=== PATIENT | female | born 1985 | race Caucasian/White ===

== ENCOUNTER 2018-08-16 08:07 | Observation (INO) ==
--- NOTE | 2018-08-16 08:17 | Emergency Department Note ---
ED Disposition Clinical Impression: Enterocolitis Disposition: Still a Patient Condition on Discharge: Fair Referrals: Alfredo Cuevas MD [Primary Care Provider] - - Critical Care Critical Care Time: No Attestation: On , the high probability of a clinically significant, sudden or life threatening deterioration of the following system(s) required my full and direct attention, intervention and personal management. The time I documented below is in addition to time spent performing reported procedures but includes the following listed in this critical care notation. Medical Decision Making - Artemio Inquiry Pt receiving controlled substance: Yes (Requests pain medication) Artemio was queried for this patient: No Reason not queried -: Emergent pt cond-no time Risks and benefits of using a controlled substance: were not discussed with pt by me Vital Signs: 08/16/18 08:12 08/16/18 08:44 08/16/18 09:27 Temperature 98.4 F Temperature Source Oral Pulse Rate [Left Radial] 80 81 74 Respiratory Rate 18 Blood Pressure [Right Arm] 118/90 121/87 117/83 Blood Pressure Mean [Right Arm] 99 98 94 Blood Pressure Source [Right Arm] Automatic Cuff Automatic Cuff Blood Pressure Position [Right Arm] Sitting Sitting 02 Sat by Pulse Oximetry 98 99 99 Oxygen Delivery Method Room Air Room Air 08/16/18 10:39 Temperature Temperature Source Pulse Rate [Left Radial] 72 Respiratory Rate 16 Blood Pressure [Right Arm] 137/85 Blood Pressure Mean [Right Arm] 102 Blood Pressure Source [Right Arm] Automatic Cuff Blood Pressure Position [Right Arm] Sitting 02 Sat by Pulse Oximetry 97 Oxygen Delivery Method Room Air - Lab Data Lab Results 08/16/18 08:18: WBC 14.0 H, RBC 5.64 H, Hgb 15.5, Hct 46.4, MCV 82.2, MCH 27.5, MCHC 33.5, RDW 13.1, Plt Count 489 H, MPV 6.9 L, Neut % (Auto) 74.5, Lymph % (Auto) 18.9, [place] % (Auto) 3.6, Eos % (Auto) 2.8, Baso % (Auto) 0.2, Neut # (Auto) 10.5 H, Lymph # (Auto) 2.7, [place] # (Auto) 0.5, Eos # (Auto) 0.4, Baso # (Auto) 0.0 08/16/18 08:18: Sodium 138, Potassium 3.8, Chloride 102, Carbon Dioxide 27, Anion Gap 12.8, BUN 11, Creatinine 1.01, Estimated Creat Clear 76, Estimated GFR 64, Est GFR ( Amer) 77, Glucose 134 H, Calcium 9.5, Total Bilirubin 0.4, AST 6 L, ALT 21, Alkaline Phosphatase 104, Total Protein 8.2, Albumin 4.0, Globulin 4.2 H, Albumin/Globulin Ratio 1.0 L, Lipase 178 08/16/18 08:18: Serum HCG, Qual Negative 08/16/18 08:30: Urine Color Yellow, Urine Appearance Sl cloudy, Urine pH 6.0, Ur Specific [place] >= 1.030, Urine Protein Trace, Urine Glucose (UA) Negative, Urine Ketones Trace, Urine Blood Negative, Urine Nitrate Negative, Urine Bilirubin Negative, Urine Urobilinogen 0.2, Ur Leukocyte Esterase Negative, Urine RBC None, Urine WBC Occasional, Ur Squamous Epith Cells 10-20, Urine Bacteria Trace Result diagrams: 08/16/18 08:18 08/16/18 08:18 Orders (Tests/Meds): ED MEDICATIONS Discontinued Medications Generic Name Dose Route Start Last Admin Trade Name Freq PRN Reason Stop Dose Admin Famotidine 20 mg 08/16/18 10:29 Pepcid 20mg/2ml Vial IV 08/16/18 10:30 ONCE ONE Iopamidol 75 ml 08/16/18 09:57 08/16/18 09:58 [id number]; 75ml Vial IV 08/16/18 09:58 75 ml ONCE ONE Administration Protocol Morphine Sulfate 4 mg 08/16/18 08:55 08/16/18 09:24 Morphine 4mg/Ml Syringe IV 08/16/18 08:56 4 mg ONCE ONE Administration Morphine Sulfate 4 mg 08/16/18 10:29 08/16/18 10:38 Morphine 4mg/Ml Syringe IV 08/16/18 10:30 4 mg ONCE ONE Administration Ondansetron HCl 4 mg 08/16/18 08:35 08/16/18 08:41 Zofran 4mg/2ml Vial IV 08/16/18 08:36 Not Given ONCE ONE Ondansetron HCl 4 mg 08/16/18 09:24 08/16/18 09:24 Zofran 4mg/2ml Vial IV 08/16/18 09:25 4 mg ONCE ONE Administration Promethazine HCl 12.5 mg 08/16/18 10:29 08/16/18 10:38 Phenergan 25mg/Ml 1ml Vial IV 08/16/18 10:30 12.5 mg ONCE ONE Administration Sodium Chloride 1,000 ml 08/16/18 08:55 08/16/18 09:24 Sod Chlor 0.9% 1000ml Bag IV 08/16/18 08:56 1,000 ml BOLUS ONE Administration Sodium Chloride 10 ml 08/16/18 09:57 08/16/18 09:58 Rad-Saline Flush 10ml Syringe IV 08/16/18 09:58 10 ml ONCE ONE Administration Sodium Chloride 25 ml 08/16/18 10:29 08/16/18 10:39 Sod Chlor 0.9% 25ml Bag IV 08/16/18 10:30 25 ml ONCE ONE Administration ORDERS Category Date Time Status Diarrhea Panel, PCR Stat Lab 08/16/18 08:55 Ordered Urinalysis and Microscopic Stat Lab 08/16/18 08:30 Ordered - CT Data CT Scan: Abdomen, Pelvis Time Received: 10:[address] Reviewed: Yes: I have viewed the radiologist's interpretation Findings Narrative: IMPRESSION: 1. Small amount fluid is present in the pelvis with a thin rim like rounded area of enhancement in the right adnexa which could represent a ruptured ovarian cyst. 2. Possible enterocolitis. Dictated By: Harjit Mane MD Signed By: <Electronically signed by Harjit Mane MD in [place]> 08/16/18 1017 - US Data US Images: Gallbladder Findings Narrative: Contracted gallbladder with wall thickening. No stones seen. Common duct normal. Thinning of both renal cortices. - Reevaluation(s) Time: 10:51 Reevaluation #1: Patient has not improved symptomatically. Discussed results. Most likely enterocolitis. Medical Decision Narrative: Patient was seen in the emergency room by Dr. Cuevas at the end of his shift. He states that if the patient does not improve, admit to his service. General Adult HPI - General Chief complaint: Abdominal Pain Stated complaint: gallbladder pain Time Seen by Provider: 08/16/18 08:17 Mode of Arrival: Ambulatory Limitations: No Limitations Description of Symptoms (Recalled from ER Triage Doc. by RN): to ed per pvt car with c/o ruq abd pain radiating into back +N/V starting tuesday. - History of Present Illness HPI narrative: Complains of abdominal pain since Tuesday. Pain is in the right upper quadrant and radiates to her back. However, her whole abdomen is sore, she believes from vomiting and dry heaves. She has had diarrhea, approximately 10 episodes per day. No blood noticed. She has felt chilled, but no documented fever. Has had 3 previous episodes of this type of pain since , but has not been seen by anybody until today. She believes it may be her gallbladder. Last food was yesterday evening. This morning she had a sip of Jose-Aid. - Related Data Home Medications Medication Instructions Recorded Confirmed diazepam 2 mg tablet 2 mg PO BID tab 05/30/18 08/16/18 Dextroamphetamine/Amphetamine 30 mg PO BID 08/16/18 08/16/18 [Dextroamp-Amphetamin 30 mg Tab] Propranolol HCl [Propranolol HCl 60 mg PO DAILY 08/16/18 08/16/18 ER] Sertraline HCl [Zoloft] 100 mg PO DAILY 08/16/18 08/16/18 Previous Rx's Medication Instructions Recorded sumatriptan 25 mg tablet 25 mg PO DAILY PRN #12 tab 05/18/18 Allergies Allergy/AdvReac Type Severity Reaction Status Date / Time No Known Allergies Allergy Unverified 08/16/18 08:57 [facility] History - Hepatitis A Screen Drug use history?: No High risk sexual behaviors?: No History of sexually transmitted infection?: No Currently employed?: No Childcare worker?: No Do you have indoor plumbing?: Yes Do you have electricity?: Yes Attestation statement:: This patient has been screened for Hepatitis A risk factors. I have reviewed the patient's past medical history: Yes Medical History: Reports:: Anxiety, Depression, Kidney Stones, Migraine Other Medical History: Reports: Other Comment: ADHD Laterality Cases: Bilateral: Breast Biopsy Other Surgeries: Yes: , Other Amputation: No Fractures: No - Social History Smoking Status: Never smoker Alcohol Intake: never Substance Use Type: denies use Occupational Status: employed Housing: house Household Members: family - Psychiatric History Expresses thoughts of harming self/others: None Suicide Plan Description: No Plan Pschychiatric History:: Reports:: Anxiety, Depression Family Hx:: Cancer, Hypertension, Diabetes Comment: myasthenia gravis ROS Obtained: Yes All systems reviewed & no additional complaints - Constitutional Constitutional: Reports chills, Denies fever(s) - Gastrointestinal Gastrointestingal: Reports: abdominal pain, diarrhea, nausea, vomiting Physical Exam - General General appearance: alert, in no apparent distress - Head Head exam: atraumatic, normocephalic - Eye Eye exam: Present: PERRL, EOMI - ENT ENT exam: Present: mucous membranes moist - Neck Neck exam: Present: normal inspection, trachea midline - Chest Chest inspection: Present: normal inspection, symmetric chest wall rise - Respiratory Respiratory exam: Present: normal lung sounds bilaterally. Absent: respiratory distress - Cardiovascular Cardiovascular exam: Present: regular rate, normal rhythm, normal heart sounds - Abdominal Exam Abdominal exam: Present: soft, tenderness. Absent: distention, guarding, rebound Abdominal tenderness: Present: diffuse (Most tender right upper quadrant) - Extremities Exam Extremities exam: Present: normal inspection - Neurological Exam Neurological exam: Present: alert, oriented X3 - Psychiatric Psychiatric exam: Present: normal affect, normal mood - Skin Skin exam: Present: warm, dry
[2018-08-16 08:28] LABS: Basophils % 0.2 % (0.1-2.0); Eosinophils # 0.4 K/mm3 (0.0-0.4); Eosinophils % 2.8 % (0.1-12.0); Hematocrit 46.4 % (37.0-47.0); Hemoglobin 15.5 g/dL (12.2-16.2); Lymphocytes # 2.7 K/mm3 (0.7-4.5); Lymphocytes % 18.9 % (10-50); Mean Corpuscular HGB Conc 33.5 g/dL (31.8-35.4); Mean Corpuscular Hemoglobin 27.5 pg (27.0-31.2); Mean Corpuscular Volume 82.2 fl (81-99); Mean Platelet Volume 6.9 fl (7.4-10.4); Monocytes # 0.5 K/mm3 (0.1-1.0); Monocytes % 3.6 % (1.7-9.3); Neutrophils # 10.5 K/mm3 (1.8-7.8); Neutrophils % 74.5 % (37.0-80.0); Platelet Count 489 K/mm3 (142-424); Red Blood Count 5.64 M/mm3 (4.20-5.40); Red Cell Distribution Width 13.1 % (11.5-17.5)
[2018-08-16 08:38] LABS: Anion Gap 12.8 mEq/L (5-15); Bilirubin,Total 0.4 mg/dL (0.2-1.0); Calcium 9.5 mg/dL (8.5-10.1); Globulin 4.2 gm/dl (1.3-3.2); Potassium 3.8 mmoL/L (3.5-5.1); Total Protein,Serum 8.2 gm/dL (6.4-8.2)
[2018-08-16 08:42] LABS: Microscopic, Urine URINE MICROSCOPIC (MICROSCOPIC)
[2018-08-16 08:49] LABS: Appearance,Urine SL CLOUDY (Clear); Blood, Urine Negative (Negative); Color,Urine YELLOW (Yellow); Glucose,Urine (UA) Negative (Negative); Ketones,Urine TRACE (Negative); Leukocyte Esterase,Urine Negative (Negative); Protein,Urine TRACE (Negative); Specific Gravity, Urine >= 1.030 (1.005-1.030); Urobilinogen,Urine 0.2 EU/dl (0.2)
[2018-08-16 08:59] LABS: Bacteria,Urine Trace /lpf; Bilirubin,Urine Negative (Negative); WBC,Urine Occasional #/hpf (0-3)
--- NOTE | 2018-08-16 13:19 | Pharmacy Consult Notes ---
[facility] Pharmacy VTE Monitoring - Patient Demographics Admission date: 08/16/18 Report Date: 08/16/18 Time: 13:19 Allergies/Adverse Reactions: Patient Allergies No Known Allergies Allergy (Verified 08/16/18 12:37) Height: 1.52 m Weight: 62.284 kg Patient Problems: Current Active Problems (Last Updated 11/07/17 @ 11:03 by CAMILLE Thompson) Enterocolitis (Acute) - VTE Risk Labs: VTE Related Lab Results Hgb 15.5 g/dL (12.2-16.2) 08/16/18 08:18 Hct 46.4 % (37.0-47.0) 08/16/18 08:18 Plt Count 489 K/mm3 (142-424) H 08/16/18 08:18 BUN 11 mg/dL (7-18) 08/16/18 08:18 Creatinine 1.01 mg/dL (0.55-1.02) 08/16/18 08:18 Estimated Creat Clear 76 mL/min (50-200) 08/16/18 08:18 Was VTE Risk Assessment Performed: Yes VTE Score: 0 VTE Risk Level: Very Low Risk Clinical Trial Participant: No - Prophylaxis VTE Prophylaxis Ordered?: Yes Types of VTE Prophylaxis: TEDS Knee High
--- NOTE | 2018-08-16 13:43 | History & Physical Report ---
*Admission Date: 08/16/18 *Chief complaint: vomiting *History of present illness: this wf who has progressive abd pain with vomiting and diarrhea - Complains of abdominal pain since Tuesday. Pain is in the right upper quadrant and radiates to her back. However, her whole abdomen is sore, she believes from vomiting and dry heaves. She has had diarrhea, approximately 10 episodes per day. No blood noticed. She has felt chilled, but no documented fever. Has had 3 previous episodes of this type of pain since , but has not been seen by anybody until today. She believes it may be her gallbladder. Last food was yesterday evening. This morning she had a sip of Jose-Aid [facility] History Medical History: Reports:: Anxiety, Depression, Kidney Stones, Migraine Denies:: Cancer, Diabetes Mellitus Type 1, Diabetes Mellitus Type 2, MRSA Other Medical History: Reports: Other Laterality Cases: Bilateral: Breast Biopsy Other Surgeries: Yes: , Other Amputation: No Fractures: No - *Social History Educational Level: Attended College Smoking Status: Never smoker Alcohol Intake: never Substance Use Type: denies use Occupational Status: employed Housing: house Household Members: family - Psychiatric History Expresses thoughts of harming self/others: None Suicide Plan Description: No Plan Pschychiatric History:: Reports:: Anxiety, Depression *Family Hx:: Cancer, Hypertension, Diabetes Meds Home Medications Medication Instructions Recorded Confirmed Type diazepam 2 mg tablet 2 mg PO BID tab 05/30/18 08/16/18 History Dextroamphetamine/Amphetamine 30 mg PO BID 08/16/18 08/16/18 History [Dextroamp-Amphetamin 30 mg Tab] Propranolol HCl [Propranolol HCl 60 mg PO HS 08/16/18 08/16/18 History ER] Sertraline HCl [Zoloft] 100 mg PO DAILY 08/16/18 08/16/18 History Allergies Allergy/AdvReac Type Severity Reaction Status Date / Time No Known Allergies Allergy Verified 08/16/18 12:37 Exam Vital signs and Labs for Last 24 Hours: Temp Pulse Resp BP Pulse Ox 97.8 F 54 L 16 119/80 100 08/16/18 12:31 08/16/18 12:31 08/16/18 12:31 08/16/18 12:31 08/16/18 12:31 Laboratory Results - last 24 hr 08/16/18 08:18: WBC 14.0 H, RBC 5.64 H, Hgb 15.5, Hct 46.4, MCV 82.2, MCH 27.5, MCHC 33.5, RDW 13.1, Plt Count 489 H, MPV 6.9 L, Neut % (Auto) 74.5, Lymph % (Auto) 18.9, [place] % (Auto) 3.6, Eos % (Auto) 2.8, Baso % (Auto) 0.2, Neut # (Auto) 10.5 H, Lymph # (Auto) 2.7, [place] # (Auto) 0.5, Eos # (Auto) 0.4, Baso # (Auto) 0.0 08/16/18 08:18: Sodium 138, Potassium 3.8, Chloride 102, Carbon Dioxide 27, Anion Gap 12.8, BUN 11, Creatinine 1.01, Estimated Creat Clear 76, Estimated GFR 64, Est GFR ( Amer) 77, Glucose 134 H, Calcium 9.5, Total Bilirubin 0.4, AST 6 L, ALT 21, Alkaline Phosphatase 104, Total Protein 8.2, Albumin 4.0, Globulin 4.2 H, Albumin/Globulin Ratio 1.0 L, Lipase 178 08/16/18 08:18: Serum HCG, Qual Negative 08/16/18 08:30: Urine Color Yellow, Urine Appearance Sl cloudy, Urine pH 6.0, Ur Specific [place] >= 1.030, Urine Protein Trace, Urine Glucose (UA) Negative, Urine Ketones Trace, Urine Blood Negative, Urine Nitrate Negative, Urine Bilirubin Negative, Urine Urobilinogen 0.2, Ur Leukocyte Esterase Negative, Urine RBC None, Urine WBC Occasional, Ur Squamous Epith Cells 10-20, Urine Bacteria Trace I & O for Last 24 hours: Intake & Output 08/14/18 08/15/18 08/16/18 08/17/18 11:59 11:59 11:59 11:59 Weight 131 lb 137 lb 5 oz
--- NOTE | 2018-08-17 09:57 | Progress Note ---
Internal Medicine - PN: Subj *Date: 08/17/18 *Time: 09:53 Exam Vital signs and Labs for Last 24 Hours: Temp Pulse Resp BP Pulse Ox 97.8 F 89 15 103/61 L 99 08/17/18 08:00 08/17/18 08:00 08/17/18 08:00 08/17/18 08:00 08/17/18 08:00 I & O for Last 24 hours: Intake & Output 08/14/18 08/15/18 08/16/18 08/17/18 11:59 11:59 11:59 11:59 Intake Total 1221 / 1221 Output Total 750 / 750 Balance 471 / 471 Weight 131 lb 137 lb 5 oz - *Routine HEENT Exam Head: Present: normocephalic Eye: Present: PERRL ENT: Present: mucous membranes moist - *Routine Neck Exam Present: supple. Absent: lymphadenopathy - *Routine Respiratory Exam Present: CTA bilaterally - *Routine Cardiovascular Exam Present: RRR - *Routine Abdominal Exam Present: normoactive bowel sounds, tenderness Comments: Positive [place] sign - *Routine Extremities Exam Absent: cyanosis, clubbing, edema - *Routine Skin Exam Present: warm. Absent: rash - *Routine Neurological Exam Present: alert, oriented X3 Assessment and Plan - Assessment and plan all Dx Assessment and Plan for all problems:: Rounded with Dr. Cuevas all orders per [facility] consult
--- NOTE | 2018-08-17 12:04 | Consult Report ---
*Admission Date: 08/16/18 *History of present illness: This is a 32-year-old female seen in consultation from Dr. Cuevas for evaluation regarding possible gallbladder disease. She presented to the emergency department with pain in the epigastric region and somewhat in the right upper quadrant. She also has some pain in the left lower quadrant. She has had fairly significant nausea and vomiting over the past few days. She has also had fairly severe diarrhea over the past few days. She has not had episodes of diarrhea since admission to the hospital. No melena. No bright red blood per rectum. No jaundice. She has had a few other episodes that were similar over the past month. [facility] History Medical History: Reports:: Anxiety, Depression, Kidney Stones, Migraine Denies:: Cancer, Diabetes Mellitus Type 1, Diabetes Mellitus Type 2, MRSA Other Medical History: Reports: Other Laterality Cases: Bilateral: Breast Biopsy Other Surgeries: Yes: , Other Amputation: No Fractures: No - *Social History Educational Level: Attended College Smoking Status: Never smoker Alcohol Intake: never Substance Use Type: denies use Occupational Status: employed Housing: house Household Members: family - Psychiatric History Expresses thoughts of harming self/others: None Suicide Plan Description: No Plan Pschychiatric History:: Reports:: Anxiety, Depression *Family Hx:: Cancer, Hypertension, Diabetes Meds Home Medications Medication Instructions Recorded Confirmed Type sumatriptan 25 mg tablet 25 mg PO DAILY PRN #12 tab 05/18/18 08/16/18 Rx diazepam 2 mg tablet 2 mg PO BID tab 05/30/18 08/16/18 History Dextroamphetamine/Amphetamine 30 mg PO BID 08/16/18 08/16/18 History [Dextroamp-Amphetamin 30 mg Tab] Propranolol HCl [Propranolol HCl 60 mg PO HS 08/16/18 08/16/18 History ER] Sertraline HCl [Zoloft] 100 mg PO DAILY 08/16/18 08/16/18 History Allergies Allergy/AdvReac Type Severity Reaction Status Date / Time No Known Allergies Allergy Verified 08/16/18 12:37 Exam Vital signs and Labs for Last 24 Hours: Temp Pulse Resp BP Pulse Ox 97.8 F 89 15 103/61 L 99 08/17/18 08:00 08/17/18 08:00 08/17/18 08:00 08/17/18 08:00 08/17/18 08:00 Laboratory Results - last 24 hr 08/17/18 10:15: ESR 10 08/17/18 10:15: C-Reactive Protein 0.3 I & O for Last 24 hours: Intake & Output 08/15/18 08/16/18 08/17/18 08/18/18 11:59 11:59 11:59 11:59 Intake Total 1701 / 1701 Output Total 1200 / 1200 Balance 501 / 501 Weight 131 lb 137 lb 5 oz Radiology Reports for the Last 24 Hours: US: FINDINGS: PANCREAS: Unremarkable. No obvious mass or abnormal fluid collection. No ductal dilatation LIVER: No focal liver lesions demonstrated. Homogeneous echogenicity. No intrahepatic biliary ductal dilatation evident RIGHT KIDNEY: There is thinning of the right renal cortex. The left kidney was also imaged and also showed a thinning of the cortex. No hydronephrosis GALLBLADDER: No gallstones, gallbladder wall thickening, pericholecystic fluid, or biliary dilatation. IMPRESSION: Negative gallbladder ultrasound. Bilateral renal cortical thinning CT Abd: FINDINGS: The lung bases are clear. The liver, spleen, adrenal glands, pancreas, and kidneys have an unremarkable appearance. No renal or ureteral calculi. No hydronephrosis. There are a few small lymph nodes in the retroperitoneum. No evidence of appendicitis or diverticulitis. There is a small amount fluid in the pelvis. There is a thin-walled oval area of enhancement in the right adnexa measuring 18 mm and could represent a ruptured ovarian cyst having them somewhat irregular contour. No intestinal obstruction or free air. There are fluid-filled loops of small bowel which do not appear distended. There may be some mild thickening of the colon as well. The colon is also nondistended. No acute bony anomalies. IMPRESSION: 1. Small amount fluid is present in the pelvis with a thin rim like rounded area of enhancement in the right adnexa which could represent a ruptured ovarian cyst. 2. Possible enterocolitis. - Constitutional no acute distress - *Routine Respiratory Exam Absent: respiratory distress - *Routine Cardiovascular Exam Present: RRR - *Routine Abdominal Exam Present: soft, tenderness. Absent: distended, rebound Comments: Mostly in the epigastric region. Some tenderness to palpation in bilateral upper quadrants and in left lower quadrant. Results - Labs 08/16/18 08:18 08/16/18 08:18 Laboratory Results - last 24 hr 08/17/18 10:15: ESR 10 08/17/18 10:15: C-Reactive Protein 0.3 - Imaging CT scan - abdomen: report reviewed, image reviewed CT scan - pelvis: report reviewed, image reviewed US - abdomen: report reviewed, image reviewed Assessment and Plan (1) Enterocolitis Current visit: Yes Status: Acute Category: Medical Code(s): K52.9 - Noninfective gastroenteritis and colitis, unspecified The patient's symptoms are somewhat complex, but mostly consistent with enterocolitis. Although she does have pain in the right upper quadrant/epigas tric region with some radiation to the back, she does also have pain in the left upper quadrant and in the left lower quadrant. In addition, she has had fairly significant diarrhea and this is not entirely consistent with biliary disease (certainly more consistent with enterocolitis). Although biliary disease has not been (and cannot be) ruled out with 100% certainty, her CT scan does show changes consistent with enterocolitis and her ultrasound shows no gallbladder wall thickening or other changes consistent with biliary disease. A HIDA scan has been ordered by her primary service...results pending. Unfortunately, she has been hospitalized (decreased mobility) and has required narcotics for pain control. Therefore, her ejection fraction on HIDA will likely be exceptionally low. The HIDA scan may; however, be effective in helping rule out acute cholecystitis (presence or lack of gallbladder uptake). The ejection fraction itself will, unfortunately, be of little to no value. Levaquin/Flagyl ordered F/U HIDA F/U diarrhea panel
--- NOTE | 2018-08-18 06:48 | Progress Note ---
Subjective Patient reports: no new complaints, still having pain, nausea Exam Vital signs and Labs for Last 24 Hours: Temp Pulse Resp BP Pulse Ox 98.3 F 78 16 98/52 L 98 08/18/18 04:00 08/18/18 04:00 08/18/18 04:00 08/18/18 04:00 08/18/18 04:00 Laboratory Results - last 24 hr 08/17/18 10:15: ESR 10 08/17/18 10:15: C-Reactive Protein 0.3 I & O for Last 24 hours: Intake & Output 08/15/18 08/16/18 08/17/18 08/18/18 11:59 11:59 11:59 11:59 Intake Total 1701 / 1701 2669 / 2669 Output Total 1200 / 1200 1150 / 1150 Balance 501 / 501 1519 / 1519 Weight 131 lb 137 lb 5 oz - Constitutional no acute distress - *Routine Respiratory Exam Absent: respiratory distress - *Routine Cardiovascular Exam Present: RRR - *Routine Abdominal Exam Present: soft, tenderness Progress Note: A&P (1) Enterocolitis Status: Acute Assessment and plan: Continue medical management. Follow-up pending hepatobiliary scan for evaluation of possible "lack of uptake". Cholecystectomy if hepatobiliary scan reveals lack of uptake. Further evaluation regarding enterocolitis and/or cholecystitis will be ongoing. Continue antibiotics for now. Current Visit: Yes
--- NOTE | 2018-08-18 14:12 | Discharge Summary ---
General - General Admission date:: 08/16/18 Discharge date: 08/18/18 HPI HPI: this wf who has progressive abd pain with vomiting and diarrhea - Complains of abdominal pain since Tuesday. Pain is in the right upper quadrant and radiates to her back. However, her whole abdomen is sore, she believes from vomiting and dry heaves. She has had diarrhea, approximately 10 episodes per day. No blood noticed. She has felt chilled, but no documented fever. Has had 3 previous episodes of this type of pain since , but has not been seen by anybody until today. She believes it may be her gallbladder. Last food was yesterday evening. This morning she had a sip of [employer]-Aid Hospital Course Hospital Course: Hidda Scan:IMPRESSION: Unremarkable hepatobiliary scan and gallbladder ejection fraction. No evidence of common or cystic duct obstruction with normal gallbladder ejection fraction us IMPRESSION: 1. Small amount fluid is present in the pelvis with a thin rim like rounded area of enhancement in the right adnexa which could represent a ruptured ovarian cyst. 2. Possible enterocolitis. Patient states she was able to eat peanut butter crackers last night and tolerated it well. Will discharge home follow-up in the office. Patient will need to follow-up with Dr. Douglas as an outpatient. Objective Vital signs: Temp Pulse Resp BP Pulse Ox 98.3 F 78 16 98/52 L 98 08/18/18 04:00 08/18/18 04:00 08/18/18 04:00 08/18/18 04:00 08/18/18 04:00 no acute distress - *Routine HEENT Exam Head: Present: normocephalic Eye: Present: PERRL ENT: Present: mucous membranes moist - *Routine Neck Exam Present: supple - *Routine Respiratory Exam Present: CTA bilaterally - *Routine Cardiovascular Exam Present: RRR - *Routine Abdominal Exam Present: soft, normoactive bowel sounds, tenderness - *Routine Extremities Exam Present: full ROM - *Routine Skin Exam Present: intact - *Routine Neurological Exam Present: alert, oriented X3 - Routine Psychiatric Exam Present: normal affect, normal thought process Results - Additional Comments Rounded with Dr. Cuevas all orders per Mason DS: Diagnosis - Discharge Diagnosis (1) Enterocolitis Status: Acute Discharge Plan - Patient Discharge Instructions ACTIVITY: Continue current activity DIET: continue same diet Patient Instructions: Acute Abdominal Pain - Follow up Plan Follow up with: Alfredo Cuevas MD [Primary Care Provider] - Conrad Farias MD [Staff Physician] - 08/23/18 Disposition: Home, Self-Fpc Medications: Home Medications Medication Instructions Recorded Confirmed Type sumatriptan 25 mg tablet 25 mg PO DAILY PRN #12 tab 05/18/18 08/16/18 Rx diazepam 2 mg tablet 2 mg PO BID tab 05/30/18 08/16/18 History Dextroamphetamine/Amphetamine 30 mg PO BID 08/16/18 08/16/18 History [Dextroamp-Amphetamin 30 mg Tab] Propranolol HCl [Propranolol HCl 60 mg PO HS 08/16/18 08/16/18 History ER] Sertraline HCl [Zoloft] 100 mg PO DAILY 08/16/18 08/16/18 History Promethazine HCl [Phenergan 12.5mg 12.5 mg PO Q8 PRN 3 Days #14 tablet 08/18/18 Rx tablet] Prescriptions/Medication Reconciliation: New Promethazine HCl [Phenergan 12.5mg tablet] 12.5 mg PO Q8 PRN 3 Days #14 tablet PRN Reason: Nausea Continue sumatriptan 25 mg tablet 25 mg PO DAILY PRN #12 tab PRN Reason: migraine headache diazepam 2 mg tablet 2 mg PO BID tab Propranolol HCl [Propranolol HCl ER] 60 mg PO HS Dextroamphetamine/Amphetamine [Dextroamp-Amphetamin 30 mg Tab] 30 mg PO BID Sertraline HCl [Zoloft] 100 mg PO DAILY
== END 2018-08-18 16:49 | disposition home or self-care (01) ==
LOC: 2ND 08:07 → ER 08:07 → 2ND 12:19
PROVIDERS: ADMIT Emergency Medicine; ATTEND Emergency Medicine
CPT/HCPCS: 74177; 76705; 78226; 80053; 81001; 83690; 84703; 85025; 85651; 86140; 96365; 96375; 96376; 99284; A9537; G0378; J1956; J2405; Q9967

== ENCOUNTER → 2018-09-11 18:15 | Outpatient (CLI) | payer OTHER, SELFPAY ==
[2018-09-15 17:05] LABS: H. pylori Breath Test Negative (Negative)
== END ==
PROVIDERS: Visit Provider Nurse Practitioner Family
DX: R10.9 Unspecified abdominal pain (principal)
CPT/HCPCS: 83013

== ENCOUNTER → 2019-02-15 15:37 | Outpatient (CLI) | payer OTHER, SELFPAY ==
--- NOTE | 2019-02-15 15:38 | MR_ITS ---
MR cervical spine wo con, MR 3-d myelogram/MRCP HISTORY: Migraine headache. [id number] migraine headache worse. RT sided hand and arm numbness and tingling. Neck pain when turning from side to side or going from Flexion to extension. Pressure at base of skull no prior. ITS.REASON: neck pain ORDERING PHYSICIAN: Wolf Tran APRN PATIENT AGE: 33 years No comparison TECHNIQUE: Standard multiplanar multiecho sequences are performed without contrast. 3-D MIP and myelographic images are also rendered and reviewed FINDINGS: There is normal alignment. The craniocervical junction has an unremarkable appearance. C2-C3: Unremarkable. C3-C4: Mild right foraminal narrowing from uncovertebral hypertrophy and minimal disc protrusion. C4-C5: Unremarkable. C5-C6: Minimal central disc protrusion versus mild prominence of the posterior longitudinal ligament. No impingement. C6-C7: Minimal bulging disc with small annular fissure. Borderline canal narrowing C7-T1: There is a small left paracentral disc protrusion causing narrowing of the canal. No cord impingement. IMPRESSION: 1. Mild right foraminal narrowing C3-C4. 2. Minimal central disc protrusion versus mild prominence of posterior longitudinal ligament C5-C6. 3. Minimal bulging disc with small annular fissure C6-C7 with borderline narrowing of the canal 4. Small left paracentral disc protrusion C6-C7 without cord impingement
== END ==
PROVIDERS: PCP Emergency Medicine; Visit Provider Nurse Practitioner Family
DX: M54.2 Cervicalgia (principal)
CPT/HCPCS: 72141; 76376

== ENCOUNTER 2019-02-28 17:30 | Outpatient (RCR) | payer OTHER, SELFPAY ==
--- NOTE | 2019-02-26 18:24 | HMH.PTOPEV ---
PT Outpatient Evaluation Rehab PT Outpatient Evaluation Start: 02/26/19 17:36 Freq: Status: Active Protocol: Document 02/26/19 17:59 LITAROBB (Rec: 02/26/19 18:24 LITAROBB [id number]) Electronically Signed By Beto Pandey, SKY 02/26/19 17:59 Outpatient Therapy Subjective History Subjective History This is the initial physical therapy evaluation for Lizeth Edge. Pt is a 33 y/o female referred to PT for c/o R sided headaches and cervical/ periscap pain. Pt reports pain began w/ migraines ~ 2 years ago w/ insidious onset. Pt reports pain radiates from R c-spine into posterior head and medial scapular border. Chief Complaint Pain,Spasms,Stiff,Paresthesia Symptom Type Ache,Throb,Dull,Burning, Numbness,Tingling Symptoms Relieved By Heat,Prescription Meds Symptoms Aggravated By Physical Activity Prior Functional Limitations None Current Functional Limitations Lifting,Housework,Desk Work/ Reading,Recreation Activity Symptom Description Intermittent Level of pain today (0-10) 1 Pain scale - at its best (0-10) 0 Pain scale - at its worst (0-10) 8 Cervical Eval Palpation Cervical Muscles R SCM,R Upper Trapezius,R Thoracic Paraspinals Cervical/Thoracic Palpation Findings Tenderness,Trigger Point Posture Head/C-Spine Posture Sitting Position C-Spine Flattened Head/C-Spine Posture Standing Position C-Spine Flattened Flexibility Deficits Levaetor Scapulae Muscle Length (R) Mild Tightness Sternocleidomastoid Muscle Length (R) Mild Tightness Passive Joint Mobility Cervical PIVM Dec: R C2/3 R C3/4 R C4/5 R C5/6 R C6/7 R C7/T1 AROM Cervical Spine Extension Active Range of 45 Motion (degrees) Cervical Spine Flexion Active Range of 40 Motion (degrees) Cervical Spine Right Lateral Flexion 40 Active Range of Motion (degrees) Cervical Spine Left Lateral Flexion 30 Active Range of Motion (degrees) MMT Bilateral Deltoid (C5) 5 Normal Biceps Brachii Strength Grade 5 Normal Wrist Extension Strength Grade 4 Good Triceps Brachii Strength Grade 5 Normal Wrist Flexion Strength Grade 4 Good Altered Sensation Right Upper extremity Dermatomes C4,C5,C6,C7,C8,T1 Comment
== END 2019-02-28 17:35 | disposition home or self-care (01) ==
LOC: PT 17:30
PROVIDERS: Visit Provider Physician Assistant
DX: M54.2 Cervicalgia (principal)
CPT/HCPCS: 97010; 97012; 97014; 97110; 97140; 97163; G0283

== ENCOUNTER → 2019-08-09 12:23 | Outpatient (CLI) | payer OTHER, SELFPAY ==
--- NOTE | 2019-08-09 12:26 | XR_ITS ---
PROCEDURE: XR SACRUM COCCYX MIN 2V CLINICAL INDICATION: fell down stairs at home this morning Posttraumatic pain COMPARISON: CT ABDOMEN PELVIS W CON from 07/02/2019 FINDINGS: No acute fracture or dislocation is evident. There is an acute angle noted at the upper coccyx region. This however is a chronic finding not significantly changed from lopez [id number]. There is an IUD in place which is slightly situated toward the right of the pelvis. IMPRESSION: No acute findings. Dictated by: Harjit Mane MD 08/09/2019 16:06 Electronically signed by Harjit Mane MD in [place] 08/09/2019 16:06
== END ==
PROVIDERS: PCP Emergency Medicine; Visit Provider Nurse Practitioner Family
DX: M79.18 Myalgia, other site (principal); M53.3 Sacrococcygeal disorders, not elsewhere classified
CPT/HCPCS: 72220

== ENCOUNTER 2020-05-16 17:54 | Emergency (ER) | payer OTHER, SELFPAY ==
[2020-05-16 17:57] VITALS: BP 132/75; PULSE 109; RESP 18; TEMP 37.1; O2SAT 97; BMI 33.2
--- NOTE | 2020-05-16 18:23 | CT_ITS ---
PROCEDURE: CT HEAD/BRAIN WO CON CLINICAL INDICATION: headache COMPARISON: No exams were available for comparison TECHNIQUE: Axial images obtained. All CT scans at the facility use one or more dose reduction, viz: automated exposure control, ma/kV adjustment per patient size (including targeted exams where dose is matched to indication, i.e. head), or iterative reconstruction technique. FINDINGS: No midline shift, mass effect, intracranial hemorrhage, hydrocephalus, or extra-axial fluid collection is evident. The calvarium has an unremarkable appearance. No mastoid effusion. There is mild mucosal thickening of the ethmoid sinuses. IMPRESSION: No acute intracranial finding Dictated by: Harjit Mane MD 05/17/2020 00:38 Harjti Mane MD in [place] 05/17/2020 00:38
--- NOTE | 2020-05-16 18:27 | HMH.EDHA ---
ED Disposition Condition on Discharge: Good - Critical Care Critical Care Time: No <GeorgiJerson - Last Filed: 05/16/20 19:52> <Alfredo Cuevas - Last Filed: 05/16/20 20:11> Clinical Impression: Migraine headache Qualifiers: Migraine type: without aura Status migrainosus presence: without status migrainosus Intractability: not intractable Qualified Code(s): G43.009 - Migraine without aura, not intractable, without status migrainosus Disposition: Home, Self-Care Instructions: DI for Migraine Additional Instructions: see pcp for follow up Referrals: Alfredo Cuevas MD [Primary Care Provider] - Attestation: On 05/16/20, the high probability of a clinically significant, sudden or life threatening deterioration of the following system(s) required my full and direct attention, intervention and personal management. The time I documented below is in addition to time spent performing reported procedures but includes the following listed in this critical care notation. Medical Decision Making - Medical Records Medical records reviewed: Yes: I reviewed the patient's medical records. - Artemio Inquiry Pt receiving controlled substance: No <Juan MgregJerson garnica - Last Filed: 05/16/20 19:52> - Lab Data Lab results reviewed: Yes: I reviewed the patient's lab results. Result diagrams: 05/16/20 19:45 05/16/20 19:45 - CT Data CT Scan: Head Time Received: 20:[address] Reviewed: Yes: I have viewed the radiologist's interpretation Preliminary Findings: Normal/NAD <Alfredo Cuevas - Last Filed: 05/16/20 20:11> Vital Signs: 05/16/20 17:57 05/16/20 19:36 Temperature 98.7 F Temperature Source Oral Pulse Rate [Right Radial] 109 H 87 Respiratory Rate 18 18 Blood Pressure [Right Arm] 132/75 127/84 Blood Pressure Mean [Right Arm] 94 98 Blood Pressure Source [Right Arm] Automatic Cuff Blood Pressure Position [Right Arm] Sitting 02 Sat by Pulse Oximetry 97 100 Oxygen Delivery Method Room Air - Lab Data Lab Results 05/16/20 19:45: WBC 8.1, RBC 4.69, Hgb 14.0, Hct 40.2, MCV 85.8, MCH 29.9, MCHC 34.8, RDW 13.4, Plt Count 259, MPV 6.9 L, Neut % (Auto) 67.3, Lymph % (Auto) 24.7, [place] % (Auto) 3.7, Eos % (Auto) 3.6, Baso % (Auto) 0.7, Neut # (Auto) 5.5, Lymph # (Auto) 2.0, [place] # (Auto) 0.3, Eos # (Auto) 0.3, Baso # (Auto) 0.1 05/16/20 19:45: Sodium 139, Potassium 3.9, Chloride 102, Carbon Dioxide 26, Anion Gap 14.9, BUN 10, Creatinine 0.80, Estimated Creat Clear 122, Estimated GFR 83, Est GFR ( Amer) 100, Glucose 94, Calcium 10.0 Orders (Tests/Meds): ED MEDICATIONS Generic Name Dose Route Start Last Admin Trade Name Freq PRN Reason Stop Dose Admin Sodium Chloride 1,000 mls @ 999 mls/hr 05/16/20 18:30 05/16/20 19:44 Sod Chlor 0.9% 1000ml Bag IV 05/16/20 19:30 999 mls/hr .Q1H1M NAVJOT Administration Discontinued Medications Generic Name Dose Route Start Last Admin Trade Name Freq PRN Reason Stop Dose Admin Acetaminophen 1,000 mg 05/16/20 18:23 05/16/20 19:43 Tylenol 500mg Tablet PO 05/16/20 18:24 1,000 mg ONCE ONE Administration Diphenhydramine HCl 25 mg 05/16/20 18:23 05/16/20 19:44 Benadryl 50mg/1ml Vial IV 05/16/20 18:24 25 mg ONCE ONE Administration Ondansetron HCl 4 mg 05/16/20 18:24 05/16/20 19:44 Zofran 4mg/2ml Vial IV 05/16/20 18:25 4 mg ONCE ONE Administration ORDERS Category Date Time Status CT head/brain wo con Stat Cat Scan 05/16/20 18:23 Taken Medical Decision Narrative: 34-year-old female presented to the emergency department with headache. Patient has a history of chronic migraines. No focal neurologic deficits. Work-up will be initiated. (Jerson Laureano) Headache HPI - General Mode of Arrival: Ambulatory Limitations: No Limitations Description of Symptoms (Recalled from ER Triage Doc. by RN): Pt reports migraine x3 days, pt reports has been taking fioricet with no success. Pt reports pain is radiating do
[2020-05-16 19:36] VITALS: BP 127/84; PULSE 87; RESP 18; O2SAT 100
[2020-05-16 19:51] LABS: Basophils # 0.1 K/mm3 (0-0.2); Basophils % 0.7 % (0.1-2.0); Eosinophils # 0.3 K/mm3 (0.0-0.4); Eosinophils % 3.6 % (0.1-12.0); Hematocrit 40.2 % (37.0-47.0); Lymphocytes % 24.7 % (10-50); Mean Corpuscular HGB Conc 34.8 g/dL (31.8-35.4); Mean Corpuscular Hemoglobin 29.9 pg (27.0-31.2); Mean Corpuscular Volume 85.8 fl (81-99); Mean Platelet Volume 6.9 fl (7.4-10.4); Monocytes # 0.3 K/mm3 (0.1-1.0); Monocytes % 3.7 % (1.7-9.3); Neutrophils # 5.5 K/mm3 (1.8-7.8); Neutrophils % 67.3 % (37.0-80.0); Platelet Count 259 K/mm3 (142-424); Red Blood Count 4.69 M/mm3 (4.20-5.40); Red Cell Distribution Width 13.4 % (11.5-17.5); White Blood Count 8.1 K/mm3 (4.8-10.8)
[2020-05-16 19:54] LABS: Chloride 102 mmol/L (98-107); Sodium 139 mmol/L (136-145)
[2020-05-16 19:55] LABS: Potassium 3.9 mmoL/L (3.5-5.1)
[2020-05-16 19:57] LABS: Blood Urea Nitrogen 10 mg/dl (7-17); Creatinine Clearance Estimated 122 mL/min (50-200); Estimated Glomerular Filt Rate 83 ml/min (>60); GFR (African American) 100 ML/MIN (>60)
[2020-05-16 19:58] LABS: Anion Gap 14.9 mEq/L (5-15); Carbon Dioxide 26 mmol/L (22.0-30.0); Glucose 94 mg/dl (74-100)
[2020-05-16 21:18] VITALS: BP 110/70; PULSE 91; RESP 18; O2SAT 100
[2020-05-16 21:27] VITALS: BP 110/70; PULSE 94; RESP 16; TEMP 36.8; O2SAT 99
== END 2020-05-16 21:40 | disposition home or self-care (01) ==
PROVIDERS: Emergency Provider Emergency Medicine; PCP Emergency Medicine
DX: G43.009 Migraine without aura, not intractable, without status migrainosus (principal); F41.8 Other specified anxiety disorders; I10 Essential (primary) hypertension; Z87.442 Personal history of urinary calculi; F17.210 Nicotine dependence, cigarettes, uncomplicated; Z88.8 Allergy status to other drugs, medicaments and biological substances; Z79.899 Other long term (current) drug therapy
CPT/HCPCS: 70450; 80048; 85025; 96365; 96375; 99283; J2405

== ENCOUNTER → 2020-06-23 17:27 | Outpatient (CLI) | payer MEDICAID, SELFPAY ==
[2020-06-23 18:13] LABS: Basophils % 0.4 % (0.1-2.0); Eosinophils # 0.2 K/mm3 (0.0-0.4); Hematocrit 41.9 % (37.0-47.0); Hemoglobin 14.6 g/dL (12.2-16.2); Lymphocytes # 2.8 K/mm3 (0.7-4.5); Lymphocytes % 24.3 % (10-50); Mean Corpuscular HGB Conc 34.8 g/dL (31.8-35.4); Mean Corpuscular Hemoglobin 29.3 pg (27.0-31.2); Mean Corpuscular Volume 84.2 fl (81-99); Mean Platelet Volume 7.4 fl (7.4-10.4); Monocytes # 0.4 K/mm3 (0.1-1.0); Monocytes % 3.4 % (1.7-9.3); Neutrophils # 8.2 K/mm3 (1.8-7.8); Platelet Count 374 K/mm3 (142-424); Red Blood Count 4.98 M/mm3 (4.20-5.40); Red Cell Distribution Width 13.9 % (11.5-17.5); White Blood Count 11.7 K/mm3 (4.8-10.8)
[2020-06-23 18:55] LABS: Anion Gap 16.2 mEq/L (5-15); Blood Urea Nitrogen 12 mg/dl (7-17); Calcium 9.7 mg/dl (8.4-10.2); Carbon Dioxide 22 mmol/L (22.0-30.0); Chloride 104 mmol/L (98-107); Estimated Glomerular Filt Rate 83 ml/min (>60); GFR (African American) 100 ML/MIN (>60); Glucose 135 mg/dl (74-100); Potassium 4.2 mmoL/L (3.5-5.1); Sodium 138 mmol/L (136-145)
[2020-06-23 19:35] LABS: Coronavirus 19 IgG Antibody Negative (Negative); Coronavirus 19 IgM Antibody Positive (Negative)
[2020-06-23 19:37] LABS: HCG Qualitative, Serum Negative (Negative)
== END ==
PROVIDERS: Visit Provider Nurse Practitioner Obstetrics & Gynecology
DX: Z01.818 Encounter for other preprocedural examination (principal); Z30.09 Encounter for other general counseling and advice on contraception
CPT/HCPCS: 36415; 80048; 84703; 85025; 86328

== ENCOUNTER 2020-07-02 10:38 | Emergency (ER) | payer MEDICAID, SELFPAY ==
[2020-07-02 10:39] VITALS: BP 122/97; PULSE 112; RESP 18; TEMP 37.1; O2SAT 99; BMI 35.2
--- NOTE | 2020-07-02 10:48 | XR_ITS ---
PROCEDURE: XR FOOT LT MIN 3V CLINICAL INDICATION: injury Pain COMPARISON: No exams were available for comparison FINDINGS: No fracture or dislocation. No lytic or blastic change. There is normal mineralization. The joint spaces are well-preserved. No significant degenerative/arthritic changes. No erosive changes evident. Other findings:There is mild hallux valgus IMPRESSION: No acute findings. Dictated by: Harjit Mane MD 07/02/2020 12:35 Harjit Mane MD in [place] 07/02/2020 12:35
--- NOTE | 2020-07-02 11:04 | HMH.EDLOEX ---
ED Disposition Clinical Impression: Sprain of foot, left Qualifiers: Encounter type: initial encounter Qualified Code(s): S93.602A - Unspecified sprain of left foot, initial encounter Disposition: Home, Self-Care Condition on Discharge: Good Instructions: DI for Foot Sprain Prescriptions: Acetaminophen [Tylenol 500mg tablet] 500 mg PO Q6 #20 tab Transmission Status: Pending to [facility] Referrals: Alfredo Cuevas MD [Primary Care Provider] - - Critical Care Critical Care Time: No Attestation: On 07/02/20, the high probability of a clinically significant, sudden or life threatening deterioration of the following system(s) required my full and direct attention, intervention and personal management. The time I documented below is in addition to time spent performing reported procedures but includes the following listed in this critical care notation. Medical Decision Making - Medical Records Medical records reviewed: Yes: I reviewed the patient's medical records. - Artemio Inquiry Pt receiving controlled substance: No Vital Signs: 07/02/20 10:39 07/02/20 11:05 Temperature 98.7 F Temperature Source Oral Pulse Rate [Right] 112 H 114 H Respiratory Rate 18 Blood Pressure [Right Arm] 122/97 H 132/92 H Blood Pressure Mean [Right Arm] 105 105 Blood Pressure Source [Right Arm] Automatic Cuff Blood Pressure Position [Right Arm] Sitting 02 Sat by Pulse Oximetry 99 Orders (Tests/Meds): ED MEDICATIONS Discontinued Medications Generic Name Dose Route Start Last Admin Trade Name Freq PRN Reason Stop Dose Admin Acetaminophen 1,000 mg 07/02/20 10:55 07/02/20 11:13 Acetaminophen 500mg Tab PO 07/02/20 10:56 1,000 mg ONCE ONE Administration ORDERS Category Date Time Status Foot XR left minimum 3 views [XR foot LT min 3V] Stat Exams 07/02/20 10:48 Taken - Radiology Data #1 Image(s): Foot/Toes Image Reviewed: Yes I reviewed the patient's radiology results, Yes I reviewed the patient's radiology image Preliminary Findings: Normal/NAD, No Fracture Seen - Reevaluation(s) Time: 11:49 Reevaluation #1: On reevaluation, patient is feeling better. No evidence of fracture. Patient is to follow-up with PCP. Given strict return precautions. Verbalized understanding. Medical Decision Narrative: 34-year-old female presented to the emergency department with foot pain. X-ray will be obtained. Lower Extremity Injury HPI - General Chief Complaint: Extremity Injury, Lower Stated Complaint: [id number] injury to L foot Time Seen by Provider: 07/02/20 10:45 Mode of Arrival: Ambulatory Limitations: No Limitations Description of Symptoms (Recalled from ER Triage Doc. by RN): Injury to the left foot one week ago. Pt states after causing her foot to fall asleep she went to get up and heard a crunch - History of Present Illness HPI Narrative: 34-year-old female presenting to the emergency department with left foot pain. Patient states that she stood up from sitting on the couch and she rolled her left foot. She is complaining of significant pain over the dorsum of her left foot. She had some bruising as well. She is able to bear weight, however it is painful. She has no tenderness in the ankle. She denies any other injuries. - Related Data Home Medications Medication Instructions Recorded Confirmed tizanidine 4 mg tablet 4 mg PO DAILY tab 05/22/20 06/23/20 Previous Rx's Medication Instructions Recorded propranolol 60 mg capsule,24 60 mg PO HS #90 cap 12/05/19 hr,extended release acetaminophen 300 mg-codeine 30 mg 1 tab PO TID PRN #30 tab 05/19/20 tablet tizanidine 4 mg capsule 4 mg PO TID PRN #90 cap 05/19/20 aripiprazole 30 mg tablet 30 mg PO DAILY #30 tab 06/25/20 bupropion HCl 150 mg 24 hr tablet, 150 mg PO DAILY #30 tab 06/25/20 extended release dextroamphetamine-amphetamine 30 30 mg PO BID #60 tab 06/25/20 mg tablet diazepam 10 m
[2020-07-02 11:05] VITALS: BP 132/92; PULSE 114
[2020-07-02 11:54] VITALS: BP 132/90; PULSE 122; RESP 18; TEMP 37.1; O2SAT 99
== END 2020-07-02 12:07 | disposition home or self-care (01) ==
PROVIDERS: Emergency Provider Emergency Medicine; PCP Emergency Medicine
DX: S93.602A Unspecified sprain of left foot, initial encounter (principal); X50.1XXA Overexertion from prolonged static or awkward postures, initial encounter; Y92.019 Unspecified place in single-family (private) house as the place of occurrence of the external cause; F41.8 Other specified anxiety disorders; I10 Essential (primary) hypertension; Z87.442 Personal history of urinary calculi; G43.709 Chronic migraine without aura, not intractable, without status migrainosus; F17.210 Nicotine dependence, cigarettes, uncomplicated; Z79.899 Other long term (current) drug therapy
CPT/HCPCS: 73630; 99282

== ENCOUNTER 2020-08-08 05:26 | Emergency (ER) | payer MEDICAID, SELFPAY ==
[2020-08-08 05:38] VITALS: BMI 34.0
--- NOTE | 2020-08-08 05:39 | CT_ITS ---
PROCEDURE: CT ABDOMEN PELVIS WO CON CLINICAL INDICATION: abd pain Right upper quadrant pain with nausea and vomiting COMPARISON: CT CT ABDOMEN PELVIS W CON from 07/02/2019 TECHNIQUE: Axial images obtained with sagittal and coronal reformats. All CT scans at the facility use one or more dose reduction, viz: automated exposure control, ma/kV adjustment per patient size (including targeted exams where dose is matched to indication, i.e. head), or iterative reconstruction technique. FINDINGS: LOWER THORAX: No acute finding ABDOMEN & PELVIS: The liver, gallbladder, spleen, adrenal glands, and pancreas have an unremarkable appearance. There is a 2 mm nonobstructing stone in the lower pole of the right kidney. No ureteral calculi are evident. No intestinal obstruction or free air is apparent. No evidence of appendicitis. No intestinal obstruction or free air. There are some scattered air-fluid levels within the large bowel which is nonspecific and may be seen with diarrhea disease. There is an IUD in place which appears to be in satisfactory position. The uterus is anteverted. No pelvic mass or abnormal fluid collection apparent. No acute bony findings. There are few scattered small bone islands within the pelvis. IMPRESSION: 1. There are a few scattered air-fluid levels within the large bowel which can be seen with diarrhea disease. 2. Nonobstructing right nephrolithiasis. 3. Otherwise negative Dictated by: Harjit Mane MD 08/08/2020 06:46 Harjit Mane MD in [place] 08/08/2020 06:46
[2020-08-08 05:41] VITALS: BP 105/77; PULSE 77; RESP 18; TEMP 36.8; O2SAT 99; BMI 34.0
[2020-08-08 05:50] LABS: Microscopic, Urine URINE MICROSCOPIC (MICROSCOPIC)
[2020-08-08 05:53] LABS: Appearance,Urine CLEAR (Clear); Blood, Urine Negative (Negative); Color,Urine YELLOW (Yellow); Glucose,Urine (UA) Negative (Negative); Ketones,Urine Negative (Negative); Leukocyte Esterase,Urine TRACE (Negative); Nitrate,Urine POSITIVE (Negative); Protein,Urine 1+ (Negative); Specific Gravity, Urine >= 1.030 (1.005-1.030); Urobilinogen,Urine 0.2 EU/dl (0.2)
[2020-08-08 06:01] LABS: Bilirubin,Urine Negative (Negative)
[2020-08-08 06:03] LABS: Basophils % 0.2 % (0.1-2.0); Eosinophils # 0.3 K/mm3 (0.0-0.4); Hematocrit 45.9 % (37.0-47.0); Hemoglobin 15.9 g/dL (12.2-16.2); Lymphocytes # 1.7 K/mm3 (0.7-4.5); Lymphocytes % 14.4 % (10-50); Mean Corpuscular HGB Conc 34.7 g/dL (31.8-35.4); Mean Corpuscular Hemoglobin 29.5 pg (27.0-31.2); Mean Corpuscular Volume 85.1 fl (81-99); Mean Platelet Volume 7.3 fl (7.4-10.4); Monocytes # 0.4 K/mm3 (0.1-1.0); Monocytes % 3.4 % (1.7-9.3); Neutrophils # 9.2 K/mm3 (1.8-7.8); Platelet Count 343 K/mm3 (142-424); Red Blood Count 5.39 M/mm3 (4.20-5.40); Red Cell Distribution Width 13.8 % (11.5-17.5); White Blood Count 11.6 K/mm3 (4.8-10.8)
[2020-08-08 06:11] LABS: Chloride 105 mmol/L (98-107); Sodium 137 mmol/L (136-145)
[2020-08-08 06:13] LABS: Urine Pregnancy, HCG Qual. Negative (Negative)
[2020-08-08 06:13] LABS: Amylase 60 U/L (30-110); Blood Urea Nitrogen 14 mg/dl (7-17); Creatinine Clearance Estimated 111 mL/min (50-200); Estimated Glomerular Filt Rate 72 ml/min (>60); GFR (African American) 87 ML/MIN (>60)
[2020-08-08 06:14] LABS: Alanine Aminotransferase 22 U/L (12-78); Albumin Level 4.9 g/dl (3.5-5.0); Albumin/Globulin Ratio 1.4 (1.1-1.8); Alkaline Phosphatase 104 U/L (38-126); Aspartate Amino Transferase 26 U/L (14-36); Bilirubin,Total 0.5 mg/dl (0.2-1.3); Calcium 9.6 mg/dl (8.4-10.2); Carbon Dioxide 21 mmol/L (22.0-30.0); Globulin 3.4 g/dL (1.3-3.2); Glucose 165 mg/dl (74-100); Lipase 85 U/L (23-300); Total Protein,Serum 8.3 g/dl (6.3-8.2)
[2020-08-08 06:20] LABS: C-Reactive Protein 11.8 mg/L (0-4)
[2020-08-08 06:35] LABS: Procalcitonin 0.049 ng/mL (0.0-2.0)
--- NOTE | 2020-08-08 06:35 | HMH.EDGENADL ---
ED Disposition Clinical Impression: Gastroenteritis Disposition: Home, Self-Care Condition on Discharge: Good Instructions: DI for Acute Pain -- Adult Additional Instructions: fluids and see pcp for follow up Referrals: Alfredo Cuevas MD [Primary Care Provider] - - Critical Care Critical Care Time: No Attestation: On 08/08/20, the high probability of a clinically significant, sudden or life threatening deterioration of the following system(s) required my full and direct attention, intervention and personal management. The time I documented below is in addition to time spent performing reported procedures but includes the following listed in this critical care notation. Medical Decision Making - Medical Records Medical records reviewed: Yes: I reviewed the patient's medical records. - Artemio Inquiry Pt receiving controlled substance: No Vital Signs: 08/08/20 05:41 Temperature 98.2 F Temperature Source Oral Pulse Rate [Right] 77 Respiratory Rate 18 Blood Pressure [Right Arm] 105/77 L Blood Pressure Mean [Right Arm] 86 Blood Pressure Source [Right Arm] Automatic Cuff Blood Pressure Position [Right Arm] Supine 02 Sat by Pulse Oximetry 99 Oxygen Delivery Method Room Air - Lab Data Lab results reviewed: Yes: I reviewed the patient's lab results. Lab Results 08/08/20 05:36: Urine Color Yellow, Urine Appearance Clear, Urine pH 6.0, Ur Specific [place] >= 1.030, Urine Protein 1+, Urine Glucose (UA) Negative, Urine Ketones Negative, Urine Blood Negative, Urine Nitrate Positive, Urine Bilirubin Negative, Urine Urobilinogen 0.2, Ur Leukocyte Esterase Trace, Urine RBC 5-10, Urine WBC 3-5, Ur Squamous Epith Cells 3-5 08/08/20 05:36: Urine HCG, Qual Negative 08/08/20 05:50: WBC 11.6 H, RBC 5.39, Hgb 15.9, Hct 45.9, MCV 85.1, MCH 29.5, MCHC 34.7, RDW 13.8, Plt Count 343, MPV 7.3 L, Neut % (Auto) 79.0, Lymph % (Auto) 14.4, [place] % (Auto) 3.4, Eos % (Auto) 3.0, Baso % (Auto) 0.2, Neut # (Auto) 9.2 H, Lymph # (Auto) 1.7, [place] # (Auto) 0.4, Eos # (Auto) 0.3, Baso # (Auto) 0.0, ESR 13 08/08/20 05:50: Sodium 137, Potassium 4.0, Chloride 105, Carbon Dioxide 21 L, Anion Gap 15.0, BUN 14, Creatinine 0.90, Estimated Creat Clear 111, Estimated GFR 72, Est GFR ( Amer) 87, Glucose 165 H, Calcium 9.6, Total Bilirubin 0.5, AST 26, ALT 22, Alkaline Phosphatase 104, C-Reactive Protein 11.8 H, Total Protein 8.3 H, Albumin 4.9, Globulin 3.4 H, Albumin/Globulin Ratio 1.4, Amylase 60, Lipase 85, Procalcitonin 0.049 Result diagrams: 08/08/20 05:50 08/08/20 05:50 Orders (Tests/Meds): ED MEDICATIONS Discontinued Medications Generic Name Dose Route Start Last Admin Trade Name Freq PRN Reason Stop Dose Admin Sodium Chloride 1,000 mls @ 999 mls/hr 08/08/20 05:45 08/08/20 06:02 Sod Chlor 0.9% 1000ml Bag IV 08/08/20 06:45 999 mls/hr .Q1H1M NAVJOT Administration Ketorolac Tromethamine 30 mg 08/08/20 05:57 08/08/20 06:01 Ketorolac 30mg/Ml Vial IV 08/08/20 05:58 30 mg ONCE ONE Administration Ondansetron HCl 4 mg 08/08/20 05:45 08/08/20 06:01 Ondansetron 4mg/2ml Vial IV 08/08/20 05:46 4 mg ONCE ONE Administration ORDERS Category Date Time Status US gallbladder Stat Exams 08/08/20 07:10 Ordered - CT Data CT Scan: Abdomen, Pelvis Time Received: 07:[address] Reviewed: Yes: I have viewed the radiologist's interpretation Preliminary Findings: Abnormal (see report ) - US Data US Images: Gallbladder ED US Reviewed: Yes: I discussed the US results w/the radiologist Preliminary Findings: Normal/NAD - Reevaluation(s) Time: 08:25 Reevaluation #1: doing better General Adult HPI - General Chief complaint: PAIN Stated complaint: Upper right quadrant pain, V/N Time Seen by Provider: 08/08/20 06:36 Mode of Arrival: Ambulatory Source of Information: Patient, Medical Record Limitations: No Limitations Description of Symptoms (Recalled from ER Triage Doc. by RN): Pt seen Dr Prescott yest
[2020-08-08 06:36] LABS: Erythrocyte Sedimentation Rate 13 mm/hr (0-20)
--- NOTE | 2020-08-08 07:10 | US_ITS ---
PROCEDURE: US GALLBLADDER CLINICAL INDICATION: abd pain COMPARISON: US GB US gallbladder from 08/16/2018 FINDINGS: Pancreas: The pancreas appears grossly normal although portions of the head and tail are obscured by bowel gas. Liver: Unremarkable. There is appropriate direction of blood flow within a non dilated portal vein. Right kidney: The right kidney measures 10.6 by 3.9 by 5.4 cm. Cortical thickness is 0.5 cm. There is rather uniform cortical thinning and this was seen on the previous exam 08/16/2018. There is no hydronephrosis. Gallbladder: The gallbladder is normal in size and shows no definite gallstones or sludge. Common bile duct is normal in caliber. IMPRESSION: Negative gallbladder ultrasound. No stones evident. Dictated by: Dr. Paul Valentine MD 08/08/2020 08:58 Dr. Paul Valentine MD in [place] 08/08/2020 08:58
--- NOTE | 2020-08-08 07:46 | PC.NURSE ---
Pt to US
[2020-08-08 08:33] VITALS: BP 122/76; PULSE 98; RESP 16; TEMP 36.8; O2SAT 100
== END 2020-08-08 08:35 | disposition home or self-care (01) ==
PROVIDERS: Emergency Provider Emergency Medicine; PCP Emergency Medicine
DX: K52.9 Noninfective gastroenteritis and colitis, unspecified (principal); F41.8 Other specified anxiety disorders; I10 Essential (primary) hypertension; F17.210 Nicotine dependence, cigarettes, uncomplicated; Z79.899 Other long term (current) drug therapy
CPT/HCPCS: 74176; 76705; 80053; 81001; 81025; 82150; 83690; 84145; 85025; 85651; 86140; 96365; 96375; 99283; J2405

== ENCOUNTER → 2020-10-24 10:29 | Outpatient (CLI) | payer MEDICAID, SELFPAY ==
--- NOTE | 2020-10-24 10:29 | NM_ITS ---
PROCEDURE: NM HEPATOBILIARY W PHARM CLINICAL INDICATION: ruq pain, n/v COMPARISON: No exams were available for comparison TECHNIQUE: DOSE: 8.09 mCi technetium Choletec and 1.5 mcg of CCK FINDINGS: Homogeneous activity is present within the hepatic parenchyma. Activity is present in the gallbladder by 15 minutes. Activity is present in the small bowel by 5 minutes. The gallbladder ejection fraction is calculated to be 67 percent. CCK-The patient reported moderate pain during CCK infusion. IMPRESSION: No evidence of common or cystic duct obstruction with normal gallbladder ejection fraction Dictated by: Harjit Mane MD 10/24/2020 17:55 Harjit Mane MD in [place] 10/24/2020 17:55
== END ==
PROVIDERS: PCP Family Medicine; Visit Provider Family Medicine
DX: R10.11 Right upper quadrant pain (principal)
CPT/HCPCS: 78227; A9537; J2805

== ENCOUNTER 2021-03-04 09:19 | Emergency (ER) | payer BC, MEDICAID, SELFPAY ==
--- NOTE | 2021-03-04 09:23 | XR_ITS ---
PROCEDURE: XR ANKLE RT MIN 3V CLINICAL INDICATION: slipped in grass Injury with pain COMPARISON: No exams were available for comparison FINDINGS: No fracture or dislocation. No lytic or blastic change. There is normal mineralization. There is some minimal focal cortical thickening along the distal aspect of the fibula at the level of the ankle joint. This could be sequela from an old injury. No definite acute fracture or dislocation is evident. Other findings:None. IMPRESSION: No acute findings. Dictated by: Harjit Mane MD 03/04/2021 10:50 Harjit Mane MD in [place] 03/04/2021 10:50
--- NOTE | 2021-03-04 09:23 | XR_ITS ---
PROCEDURE: XR FOOT RT MIN 3V CLINICAL INDICATION: slipped in grass Pain COMPARISON: CR XR FOOT LT MIN 3V from 07/02/2020 FINDINGS: No fracture or dislocation. No lytic or blastic change. There is normal mineralization. The joint spaces are well-preserved. No significant degenerative/arthritic changes. No erosive changes evident. Other findings:None. IMPRESSION: No acute findings. Dictated by: Harjit Mane MD 03/04/2021 10:49 Harjit Mane MD in [place] 03/04/2021 10:49
[2021-03-04 10:05] VITALS: BP 132/87; PULSE 101; RESP 19; TEMP 36.6; O2SAT 98; BMI 31.2
--- NOTE | 2021-03-04 10:57 | HMH.EDUTC ---
[facility] [place]ression: Right ankle sprain Qualifiers: Encounter type: initial encounter Involved ligament of ankle: unspecified ligament Qualified Code(s): S93.401A - Sprain of unspecified ligament of right ankle, initial encounter Right foot sprain Qualifiers: Encounter type: initial encounter Qualified Code(s): S93.601A - Unspecified sprain of right foot, initial encounter Fall Qualifiers: Encounter type: initial encounter Qualified Code(s): W19.XXXA - Unspecified fall, initial encounter Disposition: Home, Self-Care Condition on Discharge: Good Instructions: How to Use Crutches, DI for Ankle Sprain Additional Instructions: Rest the extremity, apply ice for 15 minutes as tolerated three or four times per day, Elevate the extremity as tolerated while you are resting. Take ibuprofen for pain. I sent in a prescription to your pharmacy. Follow up with Dr. Gómez (podaitry). Sometimes there can be fractures that don't show up well on the first set of x-rays. So, you should follow up if you continue to have symptoms. I put in a referral but you need to call her office and schedule an appointment. Follow up with your regular doctor. GO TO THE ER FOR ANY WORSENING SYMPTOMS Prescriptions: Ibuprofen [Ibuprofen 800mg Tablet] 800 mg PO Q8HP PRN #30 tab PRN Reason: Moderate Pain Transmission Status: Received by [facility] Referrals: Alfredo Cuevas MD [Primary Care Provider] - Robb Tyson MD [Staff Physician] - Forms: Work/School Release Time of Disposition: 11:00 Medical Decision Making - Medical Records Medical records reviewed: No: I reviewed the patient's medical records. - Artemio Inquiry Pt receiving controlled substance: No Vital Signs: 03/04/21 10:05 03/04/21 11:29 Temperature 97.8 F 97.8 F Temperature Source Temporal Artery Scan Oral Pulse Rate 101 H Pulse Rate [Right Radial] 101 H Respiratory Rate 19 19 Blood Pressure 132/87 Blood Pressure [Right Arm] 132/87 Blood Pressure Mean [Right Arm] 102 Blood Pressure Source Automatic Cuff Blood Pressure Source [Right Arm] Automatic Cuff Blood Pressure Position Sitting Blood Pressure Position [Right Arm] Sitting 02 Sat by Pulse Oximetry 98 Oxygen Delivery Method Room Air Room Air Orders (Tests/Meds): ED MEDICATIONS Discontinued Medications Generic Name Dose Route Start Last Admin Trade Name Roxane PRN Reason Stop Dose Admin Ketorolac Tromethamine 60 mg 03/04/21 10:57 03/04/21 11:06 Ketorolac 60mg/2ml Vial IM 03/04/21 10:58 60 mg ONCE ONE Administration Methylprednisolone Sodium Succinate 125 mg 03/04/21 09:32 Methylprednisolone Sod Succ 125mg Vial IM 03/04/21 09:33 ONCE ONE - Radiology Data #1 Image(s): Ankle Image Reviewed: Yes I reviewed the patient's radiology image, Yes I have reviewed radiologist's interpretation Preliminary Findings: No Fracture Seen PROCEDURE: XR ANKLE RT MIN 3V CLINICAL INDICATION: slipped in grass Injury with pain COMPARISON: No exams were available for comparison FINDINGS: No fracture or dislocation. No lytic or blastic change. There is normal mineralization. There is some minimal focal cortical thickening along the distal aspect of the fibula at the level of the ankle joint. This could be sequela from an old injury. No definite acute fracture or dislocation is evident. Other findings:None. IMPRESSION: No acute findings. Dictated by: Harjit Mane MD 03/04/2021 10:50 Harjit Mane MD in [place] 03/04/2021 10:50 #2 Image(s): Foot/Toes Image Reviewed: Yes I reviewed the patient's radiology image, Yes I have reviewed radiologist's interpretation Preliminary Findings: No Fracture Seen PROCEDURE: XR FOOT RT MIN 3V CLINICAL INDICATION: slipped in grass Pain COMPARISON: CR XR FOOT LT MIN 3V from 07/02/2020 FINDINGS: No fracture or dislocation. No lytic or blastic change. There is no
[2021-03-04 11:29] VITALS: BP 132/87; PULSE 101; RESP 19; TEMP 36.6; O2SAT 98
== END 2021-03-04 11:17 | disposition home or self-care (01) ==
PROVIDERS: Emergency Provider Nurse Practitioner Family; PCP Emergency Medicine
DX: S93.401A Sprain of unspecified ligament of right ankle, initial encounter (principal); S93.601A Unspecified sprain of right foot, initial encounter; W01.0XXA Fall on same level from slipping, tripping and stumbling without subsequent striking against object, initial encounter; Y92.89 Other specified places as the place of occurrence of the external cause; I10 Essential (primary) hypertension; F41.8 Other specified anxiety disorders; F17.290 Nicotine dependence, other tobacco product, uncomplicated
CPT/HCPCS: 29515; 73610; 73630; 96372; 99202; G0463

== ENCOUNTER → 2021-03-13 08:21 | Outpatient (CLI) | payer BC, MEDICAID, SELFPAY ==
--- NOTE | 2021-03-13 08:21 | MR_ITS ---
PROCEDURE INFORMATION: Exam: MR Right Lower Extremity Joint Without and With Contrast; Ankle Exam date and time: 03/13/2021 8:21 AM Age: 35 years old Clinical indication: Pain; Ankle; Right; Additional info: Right ankle pain/injury. Twisted ankle and fell x1wk ago. Entire ankle pain. Swelling in foot and ankle. 15ml prohance given. Lot: [id number] exp: Sep 2022 prior x-ray 03-04-21 TECHNIQUE: Imaging protocol: MR of the Right lower extremity without and with contrast. Exam focused on the ankle. Contrast material: PROHANCE; Contrast volume: 15 ml; Contrast route: IV; COMPARISON: 1. CR XR ANKLE RT MIN 3V 03/04/2021 9:21 AM 2. CR XR FOOT RT MIN 3V 03/04/2021 9:23 AM FINDINGS: Bones and cartilage: There is a probable nondisplaced fracture involving the fourth metatarsal base where a Los T1 signal line traverses an area of bone marrow edema (series 5/image 8, series 8/image 28). Osseous contusions (post-traumatic bone marrow lesions) involve the posterior tibia, talus, intermediate cuneiform, lateral cuneiform, and second metatarsal base. Joint spaces: A mild effusion involves the ankle joint. A moderate effusion involves the ankle joint. LIGAMENTS: Distal tibiofibular syndesmosis: Unremarkable. No tear. Anterior talofibular ligament: The anterior talofibular ligament is thin, consistent with prior low grade partial-thickness tear. Posterior talofibular ligament: The posterior talofibular ligament is thickened, consistent with prior low grade injury. Calcaneofibular ligament: Unremarkable. No tear. Deltoid ligament complex: Increased T2 signal within the deep deltoid ligament complex is consistent with sprain or low-grade partial-thickness tearing. The superficial component of the deltoid ligament is intact. TENDONS: Flexor tendons of foot: Unremarkable as visualized. Tibialis posterior tendon: Mild tenosynovitis involves the tibialis posterior tendon. Peroneal tendons: Unremarkable as visualized. Extensor tendons of foot: Unremarkable as visualized. Tibialis anterior tendon: Unremarkable. Achilles tendon: Mild soft tissue edema surrounds the distal Achilles tendon with trace retrocalcaneal bursitis. Tarsal canal (Sinus tarsi): Unremarkable. Normal signal of the fat. Tarsal tunnel: Unremarkable. Muscles: Unremarkable. Soft tissues: Mild soft tissue edema surrounds the midfoot. Plantar fascia: Unremarkable. IMPRESSION: 1. Probable nondisplaced fracture involving the fourth metatarsal base. 2. Osseous contusions of the posterior malleolus of the tibia, talus, intermediate cuneiform, lateral cuneiform, and second metatarsal base. 3. Low-grade injuries of the anterior and posterior talofibular ligaments. 4. Sprain of the deep deltoid ligament complex. 5. Mild tenosynovitis of the tibialis posterior tendon. 6. Moderate ankle joint effusion.
== END ==
PROVIDERS: PCP Emergency Medicine; Visit Provider Podiatrist
DX: S93.401A Sprain of unspecified ligament of right ankle, initial encounter (principal)
CPT/HCPCS: 73723; A9576

== ENCOUNTER 2021-05-11 16:05 | Emergency (ER) | payer BC, MEDICAID, SELFPAY ==
[2021-05-11 18:10] VITALS: BP 130/82; PULSE 122; RESP 23; TEMP 36.9; O2SAT 97; BMI 34.3
--- NOTE | 2021-05-11 18:49 | HMH.EDUTC ---
[facility] [place]ression: Nausea & vomiting Qualifiers: Vomiting type: unspecified Vomiting Intractability: unspecified Qualified Code(s): R11.2 - Nausea with vomiting, unspecified Disposition: Home, Self-Care Condition on Discharge: Good Instructions: Nausea and Vomiting-Adult, Promethazine, Diarrhea Additional Instructions: Drink extra fluids with and between meals. If you have difficulty drinking, try very small amounts of water or suck on ice chips. ? Avoid fruit juices, as these do not replace minerals and can actually increase diarrhea. ? Children and adults can use sports drinks to replenish electrolytes. Younger children and infants should use products formulated for children, like oral rehydration solutions. ? Eat food in small amounts and let your stomach recover. ? Get lots of rest. You may feel tired or weak. ? No greasy or fried foods for the next 24-48 hours BRAT diet Bananas Rice Apples and [place] ? Make sure to drink plenty of liquids ? Return if needed ? Straight to ER if any life threatening symptoms ? Phenergan as prescribed ? Follow up with family doctor in the next 48-72 hours if no improvement or any worsening of symptoms Make sure to follow up as directed by [facility] for your COVID test results Prescriptions: Promethazine HCl [Phenergan 12.5mg tablet] 12.5 mg PO Q8H PRN #6 tab PRN Reason: Vomiting Transmission Status: Pending to [facility] Referrals: Alfredo Cuevas MD [Primary Care Provider] - As needed Forms: Work/School Release Time of Disposition: 19:41 Medical Decision Making - Artemio Inquiry Pt receiving controlled substance: No Artemio was queried for this patient: No Vital Signs: 05/11/21 18:10 Temperature 98.5 F Temperature Source Oral Pulse Rate [Right Brachial] 122 H Respiratory Rate 23 Blood Pressure [Right Arm] 130/82 Blood Pressure Mean [Right Arm] 98 Blood Pressure Source [Right Arm] Automatic Cuff Blood Pressure Position [Right Arm] Sitting 02 Sat by Pulse Oximetry 97 Oxygen Delivery Method Room Air Orders (Tests/Meds): ED MEDICATIONS Generic Name Dose Route Start Last Admin Trade Name Freq PRN Reason Stop Dose Admin Sodium Chloride 1,000 mls @ 999 mls/hr 05/11/21 19:15 05/11/21 18:30 Sod Chlor 0.9% 1000ml Bag IV 05/11/21 20:15 999 mls/hr .Q1H1M NAVJOT Administration Discontinued Medications Generic Name Dose Route Start Last Admin Trade Name Roxane PROsmar Reason Stop Dose Admin Ondansetron HCl 4 mg 05/11/21 18:58 05/11/21 19:01 Ondansetron 4mg Odt SL 05/11/21 18:59 4 mg ONCE ONE Administration Medical Decision Narrative: Medications discussed with pharmacy and due to patient driving unable to give Phenergan for nausea Night watch recommended one dose sublingual Zofran and dc home with oral phenergan 12.5 Patient reports that she has taken both medications in the past without reactions or complication Patient states that medication helped with N/V Fluids infusing and patient urinated in clinic State that she is feeling much better after 500cc bolus and wants to go [place] [facility] [place] - General Stated complaint: V&D,Possible UTI Time Seen by Provider: 05/11/21 18:15 Mode of Arrival: Ambulatory Source of Information: Patient Limitations: No Limitations Description of Symptoms (Recalled from Triage Doc. by RN): PATIENT C/O NAUSEA, VOMITING, DIARRHEA, AND STOMACH CRAMPS SINCE MIDNIGHT. NO URINE OUTPUT SINCE LAST NIGHT HEENT Symptoms (Recalled from RN notes): No Resp Symptoms (Recalled from RN notes): No Skin Symptoms (Recalled from RN notes): No MS Symptoms (Recalled from RN notes): No Functional Status (Recalled from RN notes): WNL - History of Present Illness Provider Complaint: Patient states that she has been having nausea, vomiting and diarrhea since yesterday and states that she feels like she maybe getting a little dehydrated so she came into get checked at [facility] and they recommended that she come
[2021-05-11 19:44] VITALS: BP 130/82; PULSE 100; RESP 23; TEMP 36.9; O2SAT 97
== END 2021-05-11 19:50 | disposition home or self-care (01) ==
PROVIDERS: Emergency Provider Nurse Practitioner; PCP Emergency Medicine
DX: R11.2 Nausea with vomiting, unspecified (principal); R19.7 Diarrhea, unspecified; Z20.822 Contact with and (suspected) exposure to COVID-19; F41.8 Other specified anxiety disorders; I10 Essential (primary) hypertension; F17.210 Nicotine dependence, cigarettes, uncomplicated
CPT/HCPCS: 96365; 99202; G0463

== ENCOUNTER → 2021-05-11 21:01 | Outpatient (CLI) | payer BC, MEDICAID, SELFPAY | PROVIDERS: Visit Provider Nurse Practitioner Family | DX: Z20.822 Contact with and (suspected) exposure to COVID-19 (principal) | CPT/HCPCS: C9803; U0003; U0005 ==

== ENCOUNTER → 2021-05-27 13:05 | Outpatient (CLI) | payer BC, MEDICAID, SELFPAY | PROVIDERS: Visit Provider Physician Assistant | DX: N39.0 Urinary tract infection, site not specified (principal) | CPT/HCPCS: 87086; 87186 ==

== ENCOUNTER → 2021-08-19 11:02 | Outpatient (CLI) | payer OTHER, MEDICAID, SELFPAY ==
--- NOTE | 2021-08-19 11:02 | MR_ITS ---
PROCEDURE: MR LUMBAR SPINE WO CON CLINICAL INDICATION: back pain COMPARISON: CT CT ABDOMEN PELVIS WO CON from 08/08/2020 MR MR ANKLE RT WO/W CON from 03/13/2021 TECHNIQUE: Standard multiplanar multiecho sequences are performed without contrast. 3-D MIP and myelographic images are also rendered and reviewed FINDINGS: There is normal alignment. The spinal cord ends at L1 level. T11-T12: On the sagittal images there does appear to be a superiorly extruded central disc herniation. This is only imaged in the sagittal view. MRI of the thoracic spine may provide further evaluation. The superiorly extruded disc measures approximately 9 mm by 4 mm with contour deformity of the lower aspect of the cord. T12-L1: Minimal central disc protrusion. L1-L2: Unremarkable. L2-L3: Unremarkable. L3-L4: Mild facet and ligamentum hypertrophic change. L4-5: Mild facet and ligamentum hypertrophy with mild left-sided foraminal narrowing. L5-S1: Facet and ligamentum hypertrophic change with mild bilateral foraminal narrowing IMPRESSION: 1. T11-T12: On the sagittal images there does appear to be a superiorly extruded central disc herniation. This is only imaged in the sagittal view. MRI of the thoracic spine may provide further evaluation. The superiorly extruded disc measures approximately 9 mm by 4 mm with contour deformity of the lower aspect of the cord anteriorly. 2. Mild lumbar spondylosis with facet and ligamentum hypertrophic change with mild foraminal narrowing. Please see above for detailed description at each level. 3. Minimal central disc protrusion T12-L1 without impingement Dictated by: Harjit Mane MD 08/20/2021 09:45 Harjit Mane MD in [place] 08/20/2021 09:45
== END ==
PROVIDERS: PCP Emergency Medicine; Visit Provider Emergency Medicine
DX: M54.16 Radiculopathy, lumbar region (principal); M54.50 Low back pain, unspecified
CPT/HCPCS: 72148; 76376

== ENCOUNTER 2021-08-19 13:14 | Emergency (ER) | payer OTHER, MEDICAID, SELFPAY ==
[2021-08-19] VITALS (10 sets, daily range): BP systolic 125–147; BP diastolic 83–100; PULSE 77–92; RESP 14–18; TEMP 36.6–36.9; O2SAT 98–100; BMI 35.2
--- NOTE | 2021-08-19 13:57 | HMH.EDOD ---
ED Disposition Clinical Impression: Drug overdose Disposition: Home, Self-Care Condition on Discharge: Fair Referrals: Provider,Referral, [Primary Care Provider] - - Critical Care Critical Care Time: No Attestation: On 08/19/21, the high probability of a clinically significant, sudden or life threatening deterioration of the following system(s) required my full and direct attention, intervention and personal management. The time I documented below is in addition to time spent performing reported procedures but includes the following listed in this critical care notation. Medical Decision Making - Medical Records Medical records reviewed: Yes: I reviewed the patient's medical records. - Artemio Inquiry Pt receiving controlled substance: Yes Artemio was queried for this patient: Yes Risks and benefits of using a controlled substance: were discussed with pt by me Vital Signs: 08/19/21 13:15 Temperature 97.8 F Temperature Source Oral Pulse Rate [Right Radial] 89 Respiratory Rate 16 Blood Pressure [Right Arm] 126/92 H Blood Pressure Mean [Right Arm] 103 Blood Pressure Source [Right Arm] Automatic Cuff Blood Pressure Position [Right Arm] Sitting 02 Sat by Pulse Oximetry 98 Oxygen Delivery Method Room Air Medical Decision Narrative: Patient is a 35-year-old female with no past medical history presenting to the ED after an overdose. Patient is awake, alert, not in acute distress. Patient is hemodynamically stable, afebrile. Patient's physical exam is for dried blood at her right nare. Patient is still sleepy therefore observed at [facility]. For observation patient back to baseline and stable for discharge. Patient is given strict return precautions and follow-up instructions. Overdose HPI - General Chief Complaint: Overdose Stated Complaint: overdose Time Seen by Provider: 08/19/21 13:30 Mode of Arrival: EMS Limitations: No Limitations Description of Symptoms (Recalled from ER Triage Doc. by RN): per ems report they were called out for an overdose. Pt was not responsive upon their arrival but was breathing. Pt was given 2mg of intranasal narcan per EMS. Pt reports she snorted half of a perc 30 earlier today. pt reports she has also taken adderal today that she takes daily as prescribed. - History of Present Illness HPI Narrative: Patient is a 35-year-old female with no past medical history presenting to the ED after an overdose. Patient took prior set with her . Patient snorted Percocet and then became very sleepy, and stopped breathing. Patient's called EMS and patient was given Narcan. Patient woke up and started to breathe on her own after the Narcan. Patient brought to [facility] for further care management. Patient states that she is very sleepy, denies any other symptoms. MD complaint: accidental overdose - Related Data Previous Rx's Medication Instructions Recorded propranolol 60 mg capsule,24 60 mg PO HS #90 cap 08/24/20 hr,extended release Ibuprofen [Ibuprofen 800mg 800 mg PO Q8HP PRN #30 tab 03/04/21 Tablet] aripiprazole 30 mg tablet 30 mg PO DAILY #30 tab 07/15/21 bupropion HCl 150 mg 24 hr tablet, 150 mg PO DAILY #30 tab 07/15/21 extended release buspirone 10 mg tablet 10 mg PO BID #60 tab 07/15/21 quetiapine 400 mg tablet 400 mg PO HS #30 tab 07/15/21 trazodone 100 mg tablet 100 mg PO .COMPLEX PRN #60 tab 07/15/21 vilazodone 20 mg tablet 20 mg PO DAILY 30 Days #30 tab 07/15/21 methylprednisolone 4 mg tablets in See Rx Instructions PO PER PKG DIR 08/05/21 a dose pack #21 tab dextroamphetamine-amphetamine 30 30 mg PO BID #60 tab 08/07/21 mg tablet diazepam 10 mg tablet 10 mg PO TID PRN #90 tab 08/07/21 oxycodone-acetaminophen 5 mg-325 1 tab PO Q8H PRN #9 tab 08/18/21 mg tablet tizanidine 4 mg tablet 4 mg PO TID PRN #30 tab 08/18/21 Allergies Allergy/AdvReac Type Severity Reaction Status Date / Time midazolam [From Versed]
== END 2021-08-19 18:28 | disposition home or self-care (01) ==
PROVIDERS: Emergency Provider Emergency Medicine
DX: T40.2X1A Poisoning by other opioids, accidental (unintentional), initial encounter (principal); Y92.019 Unspecified place in single-family (private) house as the place of occurrence of the external cause; F41.8 Other specified anxiety disorders; I10 Essential (primary) hypertension
CPT/HCPCS: 99281

== ENCOUNTER → 2021-09-04 17:36 | Outpatient (CLI) | payer BC, MEDICAID, SELFPAY | PROVIDERS: PCP Emergency Medicine; Visit Provider Nurse Practitioner | DX: Z20.822 Contact with and (suspected) exposure to COVID-19 (principal) | CPT/HCPCS: C9803; U0003; U0005 ==

== ENCOUNTER → 2021-09-17 11:47 | Outpatient (POV) | payer BC, MEDICAID, SELFPAY ==
[2021-09-17 12:10] VITALS: BP 127/84; PULSE 126; RESP 128; O2SAT 95; BMI 35.2
--- NOTE | 2021-09-17 12:39 | HMH.PMCON ---
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 Per the patient's MRI report she does have a herniated disc at this area. We will also refer the patient to neurosurgery for herniation at the T11-T12 area. Her father has seen Dr. Alatorre in the past and had good success following a herniated disc as well. The patient is having urinary incontinence which has been ongoing for 1 month. We will plan to see her back in the clinic after her thoracic epidural steroid injection for further evaluation. She did undergo physical therapy for more than 6 weeks and does continue with home stretching. She is also tried anti-inflammatories. She is currently taking tizanidine and Percocet. She is not diabetic and is not on any anticoagulation therapy. Possible side effects of corticosteroids have been discussed with the patient. Risks and benefits of the procedure have been explained to the patient. Patient would like to proceed with the procedure. Patient has been instructed to contact the clinic with any concerns before the next appointment. Dr. Doty has reviewed this note and agrees with this plan of care. This note was dictated using voice recognition software and make contain errors or omissions. HPI - Data of Consult Patient: new to practice Consult date: 09/17/21 Requesting Physician: Mary Rendon APRN - Consult Narrative Reason for consult: Neck pain, mid back pain, low back pain History of present illness: Ms. Cohn is a 35 year old female who was referred to us by Dr. Sue. The patient is complaining of neck, mid back, and low back pain. 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 She does a great deal of heavy lifting at her job. She is complaining of pain in her neck with radiation into her right arm that is causing numbness and tingling. She also has mid back and low back pain. She does have pain in bilateral lower extremities without numbness. She reports a 1 month history of urinary incontinence which is new for her. She denies any bowel incontinence. The patient has significant pain with standing and walking. Pain does improve with sitting. She has undergone physical therapy for more than 6 weeks with minimal relief. She has taken diclofenac as well as ibuprofen with minimal relief. She is currently taking Percocet and ties Romy Chidi which is given her some relief that enables her to continue to work. She does have imaging from 2018 of her cervical spine and 2020 of lumbar spine. She denies any saddle anesthesia. CC: Mary Rendon APRN [facility] History I have reviewed the patient's past medical history: Yes Medical History: Reports:: Anxiety, Depression, Hypertension, Kidney Stones, Migraine Denies:: Cancer, Diabetes Mellitus Type 1, Diabetes Mellitus Type 2, Internal Pacemaker, Lung Disease, MRSA, Seizures *Have you ever received a pneumonia vaccine?: No *Have you received a flu vaccine this season?: Yes Other Medical History: Reports: Other. Denies: Blood Transfusion Reaction Laterality Cases: Bilateral: Breast Biopsy Other Surgeries: Yes: No Previous Surgery, , Other. No: Pacemaker Amputation: No Fractures: No - *Social History Smoking Status: Current every
== END ==
PROVIDERS: Visit Provider Clinical Nurse Specialist Family Health
DX: M47.892 Other spondylosis, cervical region (principal); M54.12 Radiculopathy, cervical region; M47.894 Other spondylosis, thoracic region; M51.24 Other intervertebral disc displacement, thoracic region
CPT/HCPCS: 99202; G0463

== ENCOUNTER → 2021-09-21 15:21 | Outpatient (CLI) | payer BC, MEDICAID, SELFPAY | PROVIDERS: Visit Provider Nurse Practitioner | DX: U07.1 COVID-19 (principal) | CPT/HCPCS: C9803; U0003; U0005 ==